=== PATIENT | female | born 1990 | race Caucasian/White ===

== ENCOUNTER → 2021-09-29 10:05 | Outpatient (BNVA) | payer MEDICAID, SELFPAY | PROVIDERS: PCP Obstetrics & Gynecology; Visit Provider Obstetrics & Gynecology | DX: Z34.90 Encounter for supervision of normal pregnancy, unspecified, unspecified trimester (principal) | CPT/HCPCS: 80307; 84315 ==

== ENCOUNTER → 2021-10-06 15:39 | Outpatient (BNVA) | payer MEDICAID, SELFPAY | PROVIDERS: PCP Obstetrics & Gynecology; Visit Provider Obstetrics & Gynecology | DX: O09.899 Supervision of other high risk pregnancies, unspecified trimester (principal) | CPT/HCPCS: 84315; 87081 ==

== ENCOUNTER 2021-10-16 09:09 | Outpatient (CLI) | payer MEDICAID, SELFPAY ==
--- NOTE | 2021-10-16 10:15 | US_ITS ---
WS: [id number] LIMITED OBSTETRICAL ULTRASOUND Amniotic fluid index: HISTORY: Supervision high risk . COMPARISON: None available. Presentation: Vertex. Cervix: Closed and difficult to visualize its entire length. Placenta: Posterior and fundal. No previa or abruption. Grade: 2 HEART: FHR of 138 BPM. measurements: BPD = 9.2 cm = 37w1d HC = 32.9 cm = 37w3d AC = 35.5 cm = 39w3d FL = 7.1 cm = 36w3d MAYUR: 14.8 cm; 50th percentile. EFW: 3441 g; 76 %. AGA by ultrasound: 37w4d SATYA by ultrasound: 11/02/2021 Abdominal circumference measuring slightly greater than the remaining parameters. Less than 3 weeks d iscrepancy. US/[place] [id number] IMPRESSION: 1. Single intrauterine gestation of 37 weeks 4 days with an EDC of 11/02/2021. 2. Estimated weight at the 76th percentile. 3. No prior studies for comparison to evaluate growth trending. 4. Normal amniotic fluid.
== END 2021-10-16 09:10 | disposition home or self-care (01) ==
PROVIDERS: Visit Provider Obstetrics & Gynecology
DX: O09.899 Supervision of other high risk pregnancies, unspecified trimester (principal)
CPT/HCPCS: 76816

== ENCOUNTER → 2021-10-20 08:33 | Outpatient (BNVA) | payer MEDICAID, SELFPAY | PROVIDERS: PCP Obstetrics & Gynecology; Visit Provider Obstetrics & Gynecology | DX: O09.899 Supervision of other high risk pregnancies, unspecified trimester (principal); Z3A.00 Weeks of gestation of pregnancy not specified | CPT/HCPCS: 84315; 87522 ==

== ENCOUNTER 2021-10-24 20:57 | Inpatient (IN) | payer MEDICAID, SELFPAY ==
[2021-10-24] VITALS (70 sets, daily range): BP systolic 108–159; BP diastolic 53–108; PULSE 68–121; RESP 20; TEMP 36.4–37; O2SAT 93–99; BMI 45.4
[2021-10-24 10:40] LABS: Basophils # 0.1 10^3/uL (0.0-0.1); Basophils % 0.3 %; Eosinophils # 0.2 10^3/uL (0.0-0.8); Eosinophils % 1.2 %; Hematocrit 36.7 % (37.0-47.0); Hemoglobin 12.6 g/dL (11.5-15.3); Lymphocytes # 1.7 10^3/uL (0.8-4.8); Lymphocytes % 9.1 %; Mean Corpuscular HGB Conc 34.3 g/dL (30.0-36.0); Mean Corpuscular Hemoglobin 28.8 pg (28.0-34.0); Mean Platelet Volume 10.9 fL (7.4-10.4); Monocytes # 1.1 10^3/uL (0.2-0.9); Monocytes % 5.9 %; Neutrophils # 15.71 10^3/uL (1.8-7.7); Neutrophils % 81.9 %; Nucleated Red Blood Cells % 0 %; Platelet Count 338 10^3/cmm (130-400); Red Blood Count 4.37 10^6/uL (4.1-5.3); Red Cell Distribution Width 12.9 % (12.1-15.1); White Blood Count 19.2 10^3/uL (4.0-10.0)
[2021-10-24 10:50] LABS: Amphetamines Screen Urine Negative (Negative); Barbiturates Screen Urine Negative (Negative); Benzodiazepines Screen Urine Negative (Negative); Cocaine Screen Urine Negative (Negative); Opiate Screen Urine Negative (Negative); PCP Screen Urine Negative (Negative); THC Screen Urine Negative (Negative)
[2021-10-24] MEDS: dextrose 5%-sod chloride 0.9% 1,000 ML 999 ML IV ×2 (12:27→14:18)
[2021-10-24] MEDS: oxytocin 30 UNIT/500 ML BAG IV (16:07)
[2021-10-24] MEDS: lactated ringers 1,000 ML 999 ML IV ×2 (19:10→20:11)
--- NOTE | 2021-10-24 19:59 | P.ANESASSM_ITS ---
Pre-Anesthetic Assessment Height/Weight: Height 1.65 m Weight 123.831 kg Temp Pulse Resp BP 98.1 F 74 20 H 143/77 10/24/21 18:15 10/24/21 19:29 10/24/21 09:43 10/24/21 19:29 Preop Diagnosis: labor epidural Familial anesthetic complications: none Was Beta Venkata taken within 24 hours: N/A Was Clonidine taken within 24 hours: N/A Last Intake: 07:30 Social Tobacco and No alcohol 0.5 pack(s) per day 15+ pack years Exam alert, oriented x 3, clear to auscultation bilaterally and regular rate & rhythm Airway Submandibular: within normal limits Cervical ROM: within normal limits Mallampati: Class I Dentition: full Comments: Comments: tongue and lip ring x2 Pulmonary Asthma (daily inhailer) CV/HEM None reported None reported Hepatic Hepatitis (c) GI None reported Metabolic Morbid Obesity [facility] [place] None reported Neuropsych None reported Anesthetic Plan ASA status: 2 Anesthesia: Regional (specify below) (epidural) Risk of > 500 ml blood loss (7ml/kg in children): No Medications/Allergies Home Medications Medication Instructions Recorded Confirmed Last Taken Type albuterol sulfate 90 mcg/actuation 2 inh INHALATION Q6H PRN 09/29/21 10/20/21 10/24/21 08:00 History breath activated powder inhaler cetirizine 10 mg capsule (Zyrtec) 10 mg PO DAILY PRN 09/29/21 10/20/21 10/24/21 08:00 History docosahexaenoic acid 200 mg mg PO 09/29/21 10/20/21 10/24/21 08:00 History capsule ( DHA) montelukast 10 mg tablet 10 mg PO DAILY 09/29/21 10/20/21 10/24/21 08:00 History fluticasone propionate 50 1 inh INHALATION BID 10/06/21 10/20/21 10/23/21 21:30 History mcg/actuation blister powder for inhalation (Flovent Diskus) Allergies Allergy/AdvReac Type Severity Reaction Status Date / Time No Known Allergies Allergy Verified 10/20/21 08:20 Current Medications Generic Name Dose Route Start Last Admin Trade Name Freq PRN Reason Stop Dose Admin Dextrose/Sodium Chloride 1,000 mls @ 0 mls/hr 10/24/21 12:30 10/24/21 14:18 Dextrose 5%-Sod Chloride 0.9% IV 999 mls/hr .Q0M FRANKIE Administration As Directed Oxytocin 30 unit in 500 mls @ 1 mls/hr 10/24/21 16:00 10/24/21 17:15 Pitocin IV 6 milliunit/min .Q24H FRANKIE 6 mls/hr Titration Protocol 1 MILLIUNIT/MIN Lactated Ringer's 1,000 mls @ 999 mls/hr 10/24/21 18:51 10/24/21 19:10 Lactated Ringers IV 999 mls/hr .Q1H1M PRN Administration See label comments PFSH Anesthesia Medical History No pertinent past medical history neghx: htn, dm, thyroid, dvt/pe PCP: Dr. Antonio Supervision of normal Surgical History History of hip surgery History of surgery on lower extremity Family History Grandfather Diabetes maternal Hypertension Heart disease Denies family history of Cervical cancer Colon cancer Ovarian cancer Prostate cancer Hyperlipidemia Breast cancer Bleeding disorder Uterine cancer Thyroid disease Stroke Female Reproductive History : 1 Data Anesthesia : 10/24/21 10:20 Short CBC 10/24/21 Range/Units 10:20 WBC 19.2 H (4.0-10.0) 10^3/uL Hgb 12.6 (11.5-15.3) g/dL Hct 36.7 L (37.0-47.0) % MCV 84.0 (81-99) fl Plt Count 338 (130-400) 10^3/cmm Neut % (Auto) 81.9 % Neut # (Auto) 15.71 H (1.8-7.7) 10^3/uL Cardiac Studies: No Data to Display
--- NOTE | 2021-10-24 20:52 | ANES.PROC ---
Anesthesia Procedures Procedure/Date: 10/24/21 Epidural: Time Out Performed: Yes Consents Signed: Procedure Consent and NPO Consent Consent: requested by attending/covering physician, from patient, risks and benefits reviewed and patient agrees to proceed Lumbar Level: L3-L4 Epidural position: sitting Epidural procedure: sterile prep of area (betadine), 1% lidocaine to numb the area, 18 g needle, neg for paresthesia, test dose given (2% lidocaine PF with epi 1:200,000 3ml no response then 2ml), 0.2% Ropivacaine bolus ml (5ml), placed PCEA, no systemic response, sterile dressing applied, L.U.D. no apparent complications and 0.2% Ropiavacaine @ mls/hr (13ml/hr)
[2021-10-24] MEDS: lactated ringers 1,000 ML 125 ML IV (21:24)
[2021-10-25] VITALS (26 sets, daily range): BP systolic 92–137; BP diastolic 51–77; PULSE 81–104; RESP 16–17; TEMP 36.4–37.6; O2SAT 93–97
[2021-10-25] MEDS: lactated ringers 1,000 ML 999 ML IV (00:20)
[2021-10-25] MEDS: famotidine 20 mg/2 mL INJ IVP (00:36)
[2021-10-25] MEDS: citric acid-sodium citrate 30 mL UDC PO (00:36)
[2021-10-25] MEDS: metoclopramide 5 mg/mL SDV 2 mL 10 MG IVP (00:36)
--- NOTE | 2021-10-25 00:38 | W.PM.OPSUD ---
Surgery/Procedure H&P Update DATE OF PROCEDURE: October 25, 2021 DATE H&P PERFORMED: 10/20/21 H&P UPDATE INFORMATION: I have reviewed H&P completed within last 30 days, I have examined patient prior to procedure and No changes to prior documentation PREOP DIAGNOSIS: labor Related Problem List Diagnoses (1) Rubella non-immune status, antepartum: (2) Hepatitis C antibody positive in blood: (3) Supervision of other high-risk :
--- NOTE | 2021-10-25 00:39 | P.PN_ITS ---
Subjective Subjective: Upon admission today, the patient was noted to be having variable decelerations. After fluid bolus, the strip was reactive and pitocin was started. She had SROM. She received an epidural for pain management. She progressed to 3/60/-3 and began having late decelerations. The pitocin was at 6 units. It was turned off, resuscitative measures were taken. The tracing was category two, without accelerations. The late decelerations had stopped. I had previously had a conversation with the patient about this situation. She is remote from delivery, having mild contractions every 5-7 minutes and the baby isn't tolerating this well. My recomendation is we deliver by primary . The patient agrees and consent is signed. Vitals/I&O/Wt Last Vital Signs Temp 98.1 F 10/24/21 18:15 Pulse 93 10/25/21 00:37 Resp 20 H 10/24/21 09:43 BP 125/73 10/25/21 00:37 Pulse Ox 99 10/24/21 21:18 10/24/21 10/24/21 10/25/21 14:59 22:59 06:59 Intake Total 1000 / 1000 2002.767 / 3003.767 Balance 1000 / 1000 2002.767 / 3003.767 Weight last 48 hrs Weight 273 lb Physical Exam Urinary Catheter Management: Hinton: Cath Placed During This Visit: yes Urinary Catheter Date of Insertion: 10/24/21 Urinary Catheter Time of Insertion: 21:05 Data : 10/24/21 10:20 Attestations Medical Necessity Statement*: The patient will be here at least 2 midnights prior to discharge. 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
--- NOTE | 2021-10-25 01:41 | P.OP_ITS ---
Operative Report Date of procedure: October 25, 2021 Pre-op diagnosis: Preop Diagnosis intolerance to labor Post-op diagnosis: same Post-op diagnosis: same-delivered Post-op findings: term female in the cephalic presentation Procedure done: primary Specimens removed/disposition: placenta to pathology Surgeon: Paola Mendoza Anesthesia: Epidural Estimated blood loss (mL): 500 IV fluids (mL): 1,500 Urine output (mL): 400 Complications: none Condition: stable Disposition: floor Procedure: The patient was taken to the operating room where spinal anesthesia was administered and found to be adequate. She was prepped and draped in the normal sterile fashion in the dorsal supine position with a leftward tilt. A P fannenstiel skin incision was made and carried down to the underlying layer of fascia. The fascia was nicked in the midline and extended laterally with the Melara scissors. The fascia was then tented up and the rectus muscles dissected off sharply. The rectus muscles were and the peritoneum entered bluntly with the digit. The peritoneal incision was extended superiorly and inferiorly with good visualization of the bladder. The Jaswinder O retractor was placed. It was clear of any bowel or omentum. The bladder flap was created sharply with the Metzenbaum scissors. A low transverse uterine incision was made and carried down to the bag of water. The bag of water was ruptured and the uterine incision extended cephalocaudad. The scalp was grasped and brought through the incision. The nose and mouth were bulb suctioned. The shoulders and body delivered atraumatically. The baby was allowed to rest, while being dried, for 1 minute and then the cord was clamped and cut. The baby was handed to the waiting operator weapon locating radar. The placenta was delivered by expression. The uterus was exteriorized and cleared of all clots and debris. The uterine incision was closed with 0 Vicryl in a running fashion. A second imbricating layer of 3-0 Monocryl was used to close the uterus. The bladder flap was closed with 3-0 Monocryl. There was excellent hemostasis. The Jaswinder O retractor was removed. The uterus was returned to the abdomen. The peritoneum was closed with 3-0 Monocryl, incorporating the rectus muscle. The fascia was closed with 0 Vicryl in 2 separate sutures overlapping in the midline. The skin was closed with absorbable nhung. Apgars on baby 8 at 1 minute and 9 at 5 minutes. weight 7 pounds 9 ounces. Mother and baby were stable post delivery.
[2021-10-25] MEDS: ketorolac 30 mg/mL INJ IVP (03:36)
--- NOTE | 2021-10-25 06:19 | PC.NURSE ---
At 0603 this nurse entered room to find IV had been pulled by patient movement.
--- NOTE | 2021-10-25 07:15 | ANE.PACU2 ---
Inpatient post-anesthesia follow up: Airway intact: Yes Vital signs: Temperature 98.1 F Pulse Rate 92 Respiratory Rate 20 Blood Pressure 126/67 Pulse Oximetry 94 Oxygen Delivery Me thod Room Air Oxygen Flow Rate Fraction of Inspir ed Oxygen Hydration adequate: Yes Nausea and vomiting: Yes Pain level: 2 Mental status: Baseline
[2021-10-25] MEDS: docusate sodium 100 mg Capsule PO ×2 (11:22→20:59)
[2021-10-25] MEDS: montelukast sodium 10 mg Tablet PO (11:23)
[2021-10-25] MEDS: oxyCODONE-APAP 5-325 mg Tablet PO ×2 (11:23→19:40)
[2021-10-25] MEDS: ibuprofen 800 mg tablet PO ×2 (15:09→20:59)
[2021-10-25 16:06] LABS: Hematocrit 33.7 % (37.0-47.0); Hemoglobin 11.3 g/dL (11.5-15.3); Mean Corpuscular HGB Conc 33.5 g/dL (30.0-36.0); Mean Corpuscular Hemoglobin 29.2 pg (28.0-34.0); Mean Corpuscular Volume 87.1 fl (81-99); Mean Platelet Volume 11.4 fL (7.4-10.4); Platelet Count 335 10^3/cmm (130-400); Red Blood Count 3.87 10^6/uL (4.1-5.3); Red Cell Distribution Width 13.2 % (12.1-15.1); White Blood Count 23.7 10^3/uL (4.0-10.0)
[2021-10-26] VITALS (8 sets, daily range): BP systolic 114–140; BP diastolic 69–82; PULSE 79–93; RESP 15–18; TEMP 36.5–37; O2SAT 96–99
[2021-10-26] MEDS: oxyCODONE-APAP 5-325 mg Tablet PO ×4 (03:00→19:45)
[2021-10-26] MEDS: lanolin oint 7 gm 1 APPLIC TOPICAL (04:01)
--- NOTE | 2021-10-26 07:04 | PM.PN ---
Subjective Subjective: The patient is doing well this morning. No concerns. Vitals/I&O/Wt Last Vital Signs Temp 97.7 F 10/26/21 04:06 Pulse 86 10/26/21 04:06 Resp 16 10/26/21 03:00 BP 114/80 10/26/21 04:06 Pulse Ox 97 10/26/21 04:06 10/25/21 10/26/21 10/26/21 22:59 06:59 14:59 Output Total 500 / 1775 Balance -500 / -1775 Weight last 48 hrs Weight 273 lb Physical Exam Narrative: no concerns Const: COMMON NORMALS: no acute distress, patient oriented x3, no limitations, healthy appearing, alert and well nourished GENERAL APPEARANCE: cooperative, comfortable, well kempt and well developed ORIENTATION/CONSCIOUSNESS: Yes awake, Yes oriented to person, Yes oriented to place and Yes oriented to time Resp: COMMON NORMALS: normal respiratory effort EFFORT & INSPECTION: Yes able to speak in complete sentences GI: COMMON NORMALS: Soft to palpation and non-tender PALPATION: Yes Soft to palpation Extremity: COMMON NORMALS: normal to inspection and no calf tenderness Neuro: COMMON NORMALS: patient oriented x3 SENSORIUM/ORIENTATION: Yes alert, Yes oriented to person, Yes oriented to place and Yes oriented to time Psych: APPEARANCE: Yes well kempt Skin: WOUNDS: Yes surgical site (clean/dry/intact) Urinary Catheter Management: Hinton: Cath Placed During This Visit: yes, but has since been removed by the nurse Reason for Continuing Indwelling Catheter: Decision to DC Catheter Urinary Catheter Date of Insertion: 10/24/21 Urinary Catheter Time of Insertion: 21:05 Date Urinary Catheter Removed: 10/25/21 Time Urinary Catheter Discontinued: 11:20 Data : 10/25/21 15:19 Attestations Medical Necessity Statement*: The patient has already been here for 2 midnights Coding Level of Care Code 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
[2021-10-26] MEDS: prenatal vitamin Capsule 1 CAP PO (08:05)
[2021-10-26] MEDS: ibuprofen 800 mg tablet PO ×3 (08:05→21:19)
[2021-10-26] MEDS: docusate sodium 100 mg Capsule PO (08:05)
[2021-10-26] MEDS: montelukast sodium 10 mg Tablet PO (08:05)
[2021-10-26] MEDS: ferrous sulfate EC 325 mg Tablet PO (08:06)
[2021-10-27 00:01] VITALS: RESP 16
[2021-10-27] MEDS: oxyCODONE-APAP 5-325 mg Tablet PO ×3 (00:01→08:28)
[2021-10-27 04:25] VITALS: RESP 16; O2SAT 16
[2021-10-27 04:29] VITALS: BP 141/91; PULSE 71; RESP 16; TEMP 36.6; TEMP 36.7; O2SAT 99
--- NOTE | 2021-10-27 07:39 | P.DS_ITS ---
Discharge Providers Date of Admission: 10/24/21 20:57 Date of Discharge: October 27, 2021 Attending Provider at Admission: Paola Mendoza MD Attending Provider at Discharge: Paola Mendoza MD Primary Care Provider: Lyn Antonio DO Diagnoses at Discharge Discharge Diagnosis (1) Rubella non-immune status, antepartum: Status: Acute (2) Hepatitis C antibody positive in blood: Status: Acute (3) Supervision of other high-risk : Status: Acute Reason for Visit Reason for Visit: induction Hospital Course Hospital Course The patient was admitted to the hospital for labor induction at term. There were concerns over creeping blood pressures and swelling. She had intolerance to labor and had a primary . She did well postoperatively and was ready for discharge on day #2 Physical Exam Narrative: no concerns this morning Const: COMMON NORMALS: no acute distress, patient oriented x3, no limitations, healthy appearing, alert and well nourished GENERAL APPEARANCE: cooperative, comfortable, well kempt and well developed ORIENTATION/CONSCIOUSNESS: Yes awake, Yes oriented to person, Yes oriented to place and Yes oriented to time Resp: COMMON NORMALS: normal respiratory effort EFFORT & INSPECTION: Yes able to speak in complete sentences GI: COMMON NORMALS: Soft to palpation and non-tender PALPATION: Yes Soft to palpation Extremity: COMMON NORMALS: no calf tenderness Neuro: COMMON NORMALS: patient oriented x3 SENSORIUM/ORIENTATION: Yes alert, Yes oriented to person, Yes oriented to place and Yes oriented to time Psych: APPEARANCE: Yes well kempt Skin: WOUNDS: Yes surgical site (clean.dry, intact) Urinary Catheter Management: Hinton: Cath Placed During This Visit: yes, but has since been removed by the nurse Reason for Continuing Indwelling Catheter: Decision to DC Catheter Urinary Catheter Date of Insertion: 10/24/21 Urinary Catheter Time of Insertion: 21:05 Date Urinary Catheter Removed: 10/25/21 Time Urinary Catheter Discontinued: 11:20 Discharge Data Studies Completed and Pending Pending at discharge Category Date Time Status Pathology: Surgical [PTH] Routine Pth 10/25/21 09:23 Received Laboratory Results WBC 23.7 10^3/uL (4.0-10.0) H 10/25/21 15:19 RBC 3.87 10^6/uL (4.1-5.3) L 10/25/21 15:19 Hgb 11.3 g/dL (11.5-15.3) L 10/25/21 15:19 Hct 33.7 % (37.0-47.0) L 10/25/21 15:19 MCV 87.1 fl (81-99) 10/25/21 15:19 MCH 29.2 pg (28.0-34.0) 10/25/21 15:19 MCHC 33.5 g/dL (30.0-36.0) 10/25/21 15:19 RDW 13.2 % (12.1-15.1) 10/25/21 15:19 Plt Count 335 10^3/cmm (130-400) 10/25/21 15:19 MPV 11.4 fL (7.4-10.4) H 10/25/21 15:19 Neut % (Auto) 81.9 % 10/24/21 10:20 Lymph % (Auto) 9.1 % 10/24/21 10:20 Mcculloch % (Auto) 5.9 % 10/24/21 10:20 Eos % (Auto) 1.2 % 10/24/21 10:20 Baso % (Auto) 0.3 % 10/24/21 10:20 Neut # (Auto) 15.71 10^3/uL (1.8-7.7) H 10/24/21 10:20 Lymph # (Auto) 1.7 10^3/uL (0.8-4.8) 10/24/21 10:20 Mcculloch # (Auto) 1.1 10^3/uL (0.2-0.9) H 10/24/21 10:20 Eos # (Auto) 0.2 10^3/uL (0.0-0.8) 10/24/21 10:20 Baso # (Auto) 0.1 10^3/uL (0.0-0.1) 10/24/21 10:20 Nucleated RBC % (auto) 0 % 10/24/21 10:20 Nucleated RBCs # 0.0 /100WBC 10/24/21 10:20 Urine Opiates Screen Negative ng/mL (Negative) 10/24/21 10:15 Ur Barbiturates Screen Negative ng/mL (Negative) 10/24/21 10:15 Ur Phencyclidine Scrn Negative ng/mL (Negative) 10/24/21 10:15 Ur Amphetamines Screen Negative ng/mL (Negative) 10/24/21 10:15 U Benzodiazepines Scrn Negative ng/mL (Negative) 10/24/21 10:15 Urine Cocaine Screen Negative ng/mL (Negative) 10/24/21 10:15 U Marijuana (THC) Screen Negative ng/mL (Negative) 10/24/21 10:15 Vitals Last Vital Signs Temp 98.0 F 10/27/21 04:29 Pulse 71 10/27/21 04:29 Resp 16 10/27/21 04:29 BP 141/91 10/27/21 04:29 Pulse Ox 99 10/27/21 04:29 Discharge Plan Discharge Patient Disposition: Home Condition: Stable Prescriptions: New ibuprofen 800 mg Tablet 800 mg PO TID Qty: 30 0RF oxycodone-acetaminophen 5-325 mg Tablet 1 tab PO Q4H PRN (Reason: Moderate To Severe Pain) Qty: 30 0RF docusate sodium 100 mg Capsule 100 mg PO BID Qty: 60 0RF Continued albuterol sulfate 90 mcg/actuation aerosol powdr breath activated 2 inh inhalation Q6H PRN (Reason: ASTHMA) 0RF Zyrtec 10 mg capsule 10 mg PO DAILY PRN (Reason: Allergic Symptoms) 0RF montelukast 10 mg tablet 10 mg PO DAILY 0RF DHA 200 mg capsule PO 0RF Flovent Diskus 50 mcg/actuation blister with device 1 inh inhalation BID 0RF Discharge Orders: Discharge Order (Routine); Ordered 10/27/21 Ordered By: Paola Mendoza Patient Instructions: Depression (DC), Bleeding (DC), Preeclampsia and Eclampsia After Delivery (GEN), OB C, OB Discharge Report, OB Food/Drug Interaction Guide, OB Care at Home, Opioid Safety, OB Home Care, Abnormal Bleeding Discharge Attestations Time Spent in Discharge Care*: less than 30 min Quality Metrics Clinical Quality Measures [ No reported AMI, CVA or VTE this stay] Coding Level of Care Code Acute Chg FW DC note Diagnoses Rubella non-immune status, antepartum O09.899; Z28.39 Hepatitis C antibody positive in blood R76.8 Supervision of other high-risk O09.899
[2021-10-27 08:28] VITALS: RESP 17
[2021-10-27] MEDS: prenatal vitamin Capsule 1 CAP PO (08:28)
[2021-10-27] MEDS: ibuprofen 800 mg tablet PO (08:28)
[2021-10-27] MEDS: montelukast sodium 10 mg Tablet PO (08:28)
[2021-10-27] MEDS: docusate sodium 100 mg Capsule PO (08:28)
--- NOTE | 2021-10-27 10:00 | PC.NURSE ---
d/c instructions discussed with pt. assisted parents adjust car seat straps.
[2021-10-27 10:15] VITALS: BP 134/94; PULSE 84; RESP 18; TEMP 36.4; O2SAT 97
[2021-10-27 10:30] VITALS: BP 134/94; PULSE 84; RESP 18; TEMP 36.4; O2SAT 97
--- NOTE | 2021-10-27 10:37 | PC.NURSE ---
pt declined MMR
== END 2021-10-27 10:30 | disposition home or self-care (01) | DRG 787 ==
LOC: OBGYN 10-25 02:10 → OPOB 10-25 12:30 → OBGYN 10-25 12:30
PROVIDERS: Admitting Provider Obstetrics & Gynecology; PCP Obstetrics & Gynecology; Visit Provider Obstetrics & Gynecology
PROC: 10D00Z1 Extraction of Products of Conception, Low, Open Approach (ICD-10-PCS; CPT 59514; principal; 2021-10-25 00:40)
DX: O76 Abnormality in fetal heart rate and rhythm complicating labor and delivery (principal); O98.42 Viral hepatitis complicating childbirth; B19.20 Unspecified viral hepatitis C without hepatic coma; O99.334 Smoking (tobacco) complicating childbirth; F17.210 Nicotine dependence, cigarettes, uncomplicated; Z3A.39 39 weeks gestation of pregnancy; Z37.0 Single live birth; Z86.14 Personal history of Methicillin resistant Staphylococcus aureus infection
CPT/HCPCS: 36415; 51702; 59025; 80306; 85025; 85027; 88307; 99211; J1885; J2274; J2405; J2765; J2795; J3490; J3535

== ENCOUNTER 2022-03-04 15:43 | Emergency (ER) | payer MEDICAID, SELFPAY ==
[2022-03-04] VITALS (9 sets, daily range): BP systolic 135–143; BP diastolic 85–100; PULSE 70–101; RESP 16–19; TEMP 36.3; O2SAT 91–98
--- NOTE | 2022-03-04 15:50 | ECG_ITS ---
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 Measurements Intervals [place] Rate: 104 P: 65 UT: 140 QRS: 7 QRSD: 102 T: 48 QT: 349 QTc: 460 Interpretive Statements SINUS TACHYCARDIA INCOMPLETE RIGHT BUNDLE BRANCH BLOCK [90+ ms QRS DURATION, TERMINAL R IN V1/V2, 40+ ms S IN I/aVL/V4/V5/V6] ABNORMAL RHYTHM ECG No previous ECG available for comparison Electronically Signed On 03-05-2022 14:20:05 HOME CARE MANAGER RN by Trevor Greene M.D. [email or web address]
--- NOTE | 2022-03-04 16:55 | XRR_ITS ---
PROCEDURE INFORMATION: Exam: XR Chest Exam date and time: 03/04/2022 6:10 PM Age: 31 years old Clinical indication: Cough and dyspnea; Additional info: Dyspnea/cough TECHNIQUE: Imaging protocol: Radiologic exam of the chest. Views: 1 view. COMPARISON: No relevant prior studies available. FINDINGS: Lungs: Unremarkable. No consolidation. Pleural spaces: Unremarkable. No pleural effusion. No pneumothorax. Heart/Mediastinum: Unremarkable. No cardiomegaly. Bones/joints: Unremarkable. XR/XR chest 1V portable [id number] IMPRESSION: No acute findings.
--- NOTE | 2022-03-04 16:59 | ED_ITS ---
Documented by User: Son Herrera DO 03/11/22 12:53 HPI - Chest Pain General: Chief Complaint: Chest Pain Stated Complaint: back pain, chest pain Time Seen by Provider: 03/04/22 16:41 Source: patient Mode of arrival: ambulatory History of Present Illness: 31-year-old female presents emergency room complaining of chest and back pain. She woke up this morning with pain in the middle of her back between her shoulder blades at about the T6 567 level she also has some chest discomfort in the epigastric area radiating upwards. No nausea or vomiting. Denies any fever sweats chills no cough or shortness of breath. Nearly completely resolved at this point. MD complaint: chest pain Onset (ago): hour(s) Timing of current episode: episodic Onset: during rest Pain radiation: back Severity: mild Quality: sharp Relieving factors: nothing Exacerbating factors: nothing Associated symptoms: Deny abdominal pain, diaphoresis, dyspnea, fever(s), leg edema, nausea, palpitations, sense of impending doom, syncope or vomiting Treatment prior to arrival: none Review of Systems Const: Denies: fever(s), chills, fatigue, malaise or diaphoresis ENMT: Denies: throat pain, ear or mastoid pain, nasal discharge or nasal congestion Card: Denies: palpitations or syncope Resp: Denies: dyspnea GI: Denies: abdominal pain, nausea or vomiting : Denies: flank pain, difficulty voiding, dysuria, urinary frequency or urinary urgency Skin/Breast: Denies: rash or pruritus PFSH ED PFSH: Medical History No pertinent past medical history neghx: htn, dm, thyroid, dvt/pe PCP: Dr. Antonio Supervision of normal Surgical History History of hip surgery History of surgery on lower extremity Family History Grandfather Diabetes maternal Hypertension Heart disease Denies family history of Cervical cancer Colon cancer Ovarian cancer Prostate cancer Hyperlipidemia Breast cancer Bleeding disorder Uterine cancer Thyroid disease Stroke Physical Exam Const: GENERAL APPEARANCE: cooperative and comfortable ORIENTATION/CONSCIOUSNESS: Yes awake, Yes oriented to person, Yes oriented to place and Yes oriented to time HENMT: COMMON NORMALS: normocephalic, atraumatic, hearing grossly normal bilaterally, external ears normal, EAC's normal, TM's normal bilaterally, Normal nasal mucous membranes and turbinates present, moist oral mucous membranes and oropharynx normal HEAD & SCALP: normocephalic and atraumatic NOSE: Normal nasal mucous membranes and turbinates present EXTERNAL EAR: Yes external ears normal EXTERNAL AUDITORY CANAL: EAC's normal TYMPANIC MEMBRANE: TM's normal bilaterally Eye: COMMON NORMALS: Equal, round and reactive pupils present, EOMs intact bilaterally, conjunctivae normal and no scleral icterus CONJUNCTIVA: Yes conjunctivae normal PUPIL: Yes Equal, round and reactive pupils present Neck/C-Spine: COMMON NORMALS: full ROM, no lymphadenopathy, supple and no JVD Lymph: LYMPHATIC: no lymphadenopathy noted and no lymphedema noted Resp: COMMON NORMALS: normal respiratory effort, No retractions, No use of accessory muscles and clear to auscultation bilaterally AUSCULTATION: clear to auscultation bilaterally Cardio: COMMON NORMALS: no JVD, regular rate, regular rhythm and No murmurs present (Cardio) RATE: regular rate RHYTHM: regular rhythm GI: COMMON NORMALS: Soft to palpation and No hepatosplenomegaly present AUSCULTATION: Yes normoactive bowel sounds PALPATION: Yes Soft to palpation, No Tenderness to palpation present (GI), No Guarding due to palpation present (GI) and Yes No hepatosplenomegaly present Extremity: COMMON NORMALS: normal to inspection, capillary refill normal, no clubbing, cyanosis or edema, no calf tenderness and no pedal edema Neuro: SENSORIUM/ORIENTATION: Yes oriented to person, Yes oriented to place and Yes oriented to time Skin: COMMON NORMALS: no rashes or lesions noted GENERAL SKIN EXAM: no rashes or lesions noted Course Vital Signs: Vital signs: Vital Signs Temperature 97.3 F L 03/04/22 15:52 Pulse Rate 82 03/04/22 21:54 Respiratory Rate 16 03/04/22 21:54 Blood Pressure 143/90 03/04/22 21:33 Pulse Oximetry 94 03/04/22 21:54 Oxygen Delivery Me thod 03/04/22 21:33 MDM - Chest Pain Medical Decision Making EKG does not show any acute ST elevation. Initial labs reviewed awaiting second troponin. Care signed out to Dr. Spangler at change of shift. See final notes for diagnosis and disposition. Patient presents here with chest pain along with shortness of breath likely asthma exacerbation her pain here is improved troponins are normal her breathing is improved as well place her on steroid she is to follow-up with PCP and return if worsening. Lab Data 03/04/22 19:05 03/04/22 19:05 Radiology Impressions Chest X-Ray 03/04/22 16:55 IMPRESSION: No acute findings. Laboratory Results WBC 15.1 10^3/uL (4.0-10.0) H 03/04/22 19:05 RBC 4.87 10^6/uL (4.1-5.3) 03/04/22 19:05 Hgb 14.1 g/dL (11.5-15.3) 03/04/22 19:05 Hct 43.1 % (37.0-47.0) 03/04/22 19:05 MCV 88.5 fl (81-99) 03/04/22 19:05 MCH 29.0 pg (28.0-34.0) 03/04/22 19:05 MCHC 32.7 g/dL (30.0-36.0) 03/04/22 19:05 RDW 13.2 % (12.1-15.1) 03/04/22 19:05 Plt Count 324 10^3/cmm (130-400) 03/04/22 19:05 MPV 10.8 fL (7.4-10.4) H 03/04/22 19:05 Neut % (Auto) 92.1 % 03/04/22 19:05 Lymph % (Auto) 3.8 % 03/04/22 19:05 [place] % (Auto) 2.6 % 03/04/22 19:05 Eos % (Auto) 0.7 % 03/04/22 19:05 Baso % (Auto) 0.3 % 03/04/22 19:05 Neut # (Auto) 13.92 10^3/uL (1.8-7.7) H 03/04/22 19:05 Lymph # (Auto) 0.6 10^3/uL (0.8-4.8) L 03/04/22 19:05 [place] # (Auto) 0.4 10^3/uL (0.2-0.9) 03/04/22 19:05 Eos # (Auto) 0.1 10^3/uL (0.0-0.8) 03/04/22 19:05 Baso # (Auto) 0.0 10^3/uL (0.0-0.1) 03/04/22 19:05 Nucleated RBC % (auto) 0 % 03/04/22 19:05 Nucleated RBCs # 0.0 /100WBC 03/04/22 19:05 Sodium 128 mmol/L (136-145) L 03/04/22 19:05 Potassium 4.3 mmol/L (3.5-5.1) 03/04/22 19:05 Chloride 97 mmol/L (98-107) L 03/04/22 19:05 Carbon Dioxide 22 mmol/L (22-29) 03/04/22 19:05 Anion Gap 13.3 (5-19) 03/04/22 19:05 BUN 8 mg/dL (6-20) 03/04/22 19:05 Creatinine 0.7 mg/dL (0.5-0.9) 03/04/22 19:05 GFR Calculation 98.3 mL/min (90-130) 03/04/22 19:05 Glucose 119 mg/dL (65-115) H 03/04/22 19:05 Calculated Osmolality 265 mOsm/kg (285-295) L 03/04/22 19:05 Calcium 9.6 mg/dL (8.5-10.5) 03/04/22 19:05 Total Bilirubin 0.6 mg/dL (0.15-1.2) 03/04/22 19:05 AST 302 U/L (0-32) H 03/04/22 19:05 ALT 269 U/L (0-33) H 03/04/22 19:05 Alkaline Phosphatase 106 U/L (35-105) H 03/04/22 19:05 Troponin T Baseline 6 ng/L (0-10) 03/04/22 19:05 Troponin T 120 Minute 6.00 ng/L (0-10) 03/04/22 21:10 Delta Troponin T 0 ABS# (0-10) 03/04/22 21:10 Total Protein 7.4 g/dL (6.6-8.7) 03/04/22 19:05 Albumin 4.0 g/dL (3.5-5.2) 03/04/22 19:05 Globulin 3.4 g/dL (1.3-4.6) 03/04/22 19:05 Discharge Plan Discharge Patient Disposition: Home Clinical Impression: Chest pain, Asthma exacerbation Condition: Stable Prescriptions: New prednisone 50 mg tablet 50 mg PO DAILY Qty: 5 0RF No Action albuterol sulfate 90 mcg/actuation aerosol powdr breath activated 2 inh inhalation Q6H PRN (Reason: ASTHMA) Zyrtec 10 mg capsule 10 mg PO DAILY PRN (Reason: Allergic Symptoms) montelukast 10 mg tablet 10 mg PO BEDTIME methocarbamol 750 mg Tablet 750 mg PO Q8H PRN (Reason: Muscle Pain) hydrocortisone 2.5 % cream 1 applic TOPICAL . DIRECTED PRN (Reason: eczema) Symbicort 160-4.5 mcg/actuation HFA aerosol inhaler 2 puff INHALATION BID Discharge Orders: Discharge ED (Routine); Ordered 03/04/22 Ordered By: Jorge Spangler Referrals: Lyn Antonio DO [Primary Care Provider] - Discharge Diet: Advance as tolerated Discharge Activity: Resume usual activity Patient Instructions: Asthma (ED) Coding Level of Care Code ED Drawer In Stitch Bonding Machine for Chg Fwd Exam Comprehensive Documented by User: Jorge Spangler MD 03/04/22 22:10 HPI - Chest Pain General: Chief Complaint: Chest Pain Stated Complaint: back pain, chest pain Time Seen by Provider: 03/04/22 16:41 PFSH ED PFSH: Medical History No pertinent past medical history neghx: htn, dm, thyroid, dvt/pe PCP: Dr. Antonio Supervision of normal Surgical History History of hip surgery History of surgery on lower extremity Family History Grandfather Diabetes maternal Hypertension Heart disease Denies family history of Cervical cancer Colon cancer Ovarian cancer Prostate cancer Hyperlipidemia Breast cancer Bleeding disorder Uterine cancer Thyroid disease Stroke Course Vital Signs: Vital signs: Vital Signs Temperature 97.3 F L 03/04/22 15:52 Pulse Rate 82 03/04/22 21:54 Respiratory Rate 16 03/04/22 21:54 Blood Pressure 143/90 03/04/22 21:33 Pulse Oximetry 94 03/04/22 21:54 Oxygen Delivery Me thod 03/04/22 21:33 MDM - Chest Pain Medical Decision Making Patient presents here with chest pain along with shortness of breath likely asthma exacerbation her pain here is improved troponins are normal her breathing is improved as well place her on steroid she is to follow-up with PCP and return if worsening. Lab Data 03/04/22 19:05 03/04/22 19:05 Radiology Impressions Chest X-Ray 03/04/22 16:55
[2022-03-04] MEDS: orphenadrine 30 mg/mL Inj 2 mL 60 MG IVP (17:11)
[2022-03-04] MEDS: dexamethasone 10 mg/mL INJ IVP (17:11)
[2022-03-04] MEDS: ketorolac 30 mg/mL INJ IVP (17:11)
[2022-03-04] MEDS: morphine 4 mg/mL SDV 1 mL IVP (17:12)
--- NOTE | 2022-03-04 18:35 | ECG_ITS ---
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 Measurements Intervals [place] Rate: 79 P: 63 MT: 167 QRS: 3 QRSD: 100 T: 40 QT: 368 QTc: 423 Interpretive Statements SINUS RHYTHM WITH SINUS ARRHYTHMIA LOW QRS VOLTAGE IN PRECORDIAL LEADS [QRS DEFLECTION < 1.0 mV IN CHEST LEADS] INCOMPLETE RIGHT BUNDLE BRANCH BLOCK [90+ ms QRS DURATION, TERMINAL R IN V1/V2, 40+ ms S IN I/aVL/V4/V5/V6] No previous ECG available for comparison Electronically Signed On 03-05-2022 14:20:14 RISK MANAGEMENT PROFESSIONAL by Trevor Greene M.D. [id number]
[2022-03-04] MEDS: lidocaine 2% viscous 15 ML, aluminum-mag hydrox-simethicon 30 ML, sucralfate oral liq 1 GM PO (18:49)
[2022-03-04 19:12] LABS: Basophils % 0.3 %; Eosinophils # 0.1 10^3/uL (0.0-0.8); Eosinophils % 0.7 %; Hematocrit 43.1 % (37.0-47.0); Hemoglobin 14.1 g/dL (11.5-15.3); Lymphocytes # 0.6 10^3/uL (0.8-4.8); Lymphocytes % 3.8 %; Mean Corpuscular HGB Conc 32.7 g/dL (30.0-36.0); Mean Corpuscular Volume 88.5 fl (81-99); Mean Platelet Volume 10.8 fL (7.4-10.4); Monocytes # 0.4 10^3/uL (0.2-0.9); Monocytes % 2.6 %; Neutrophils # 13.92 10^3/uL (1.8-7.7); Neutrophils % 92.1 %; Nucleated Red Blood Cells % 0 %; Platelet Count 324 10^3/cmm (130-400); Red Blood Count 4.87 10^6/uL (4.1-5.3); Red Cell Distribution Width 13.2 % (12.1-15.1); White Blood Count 15.1 10^3/uL (4.0-10.0)
[2022-03-04] MEDS: ipratropium-albuterol 3 mL Neb INHALATION (19:29)
[2022-03-04 19:34] LABS: Troponin(5th) Baseline 6 ng/L (0-10)
[2022-03-04 19:37] LABS: Alanine Aminotransferase 269 U/L (0-33); Alkaline Phosphatase 106 U/L (35-105); Anion Gap 13.3 (5-19); Aspartate Amino Transferase 302 U/L (0-32); Blood Urea Nitrogen 8 mg/dL (6-20); Calcium 9.6 mg/dL (8.5-10.5); Carbon Dioxide 22 mmol/L (22-29); Chloride 97 mmol/L (98-107); Globulin 3.4 g/dL (1.3-4.6); Glomerular Filtration Rate 98.3 mL/min (90-130); Glucose 119 mg/dL (65-115); Osmolality Calculated 265 mOsm/kg (285-295); Potassium 4.3 mmol/L (3.5-5.1); Sodium 128 mmol/L (136-145); Total Bilirubin 0.6 mg/dL (0.15-1.2); Total Protein 7.4 g/dL (6.6-8.7)
[2022-03-04] MEDS: sodium chloride 0.9% 1,000 ML 999 ML IV (20:04)
--- NOTE | 2022-03-04 20:07 | ECG_ITS ---
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 Measurements Intervals [place] Rate: 89 P: 60 PA: 163 QRS: 12 QRSD: 100 T: 40 QT: 364 QTc: 444 Interpretive Statements SINUS RHYTHM LOW QRS VOLTAGE IN PRECORDIAL LEADS [QRS DEFLECTION < 1.0 mV IN CHEST LEADS] INCOMPLETE RIGHT BUNDLE BRANCH BLOCK [90+ ms QRS DURATION, TERMINAL R IN V1/V2, 40+ ms S IN I/aVL/V4/V5/V6] Compared to ECG 03/04/2022 18:35:34 Sinus arrhythmia no longer present Electronically Signed On 03-06-2022 0:09:28 EROSION CONTROL SPECIALIST by Trevor Greene M.D. [id number]
[2022-03-04 21:36] LABS: Troponin 5 2HR Delta 0 ABS# (0-10)
== END 2022-03-04 21:50 | disposition home or self-care (01) ==
PROVIDERS: Family Medicine; Emergency Provider Emergency Medicine; PCP Obstetrics & Gynecology
DX: R07.9 Chest pain, unspecified (principal); J45.901 Unspecified asthma with (acute) exacerbation
CPT/HCPCS: 71045; 80053; 84484; 85025; 93005; 94640; 96361; 96374; 96375; 99285; J1100; J1885; J2270; J2360; J7030

== ENCOUNTER 2022-03-09 11:19 | Emergency (ER) | payer MEDICAID, SELFPAY ==
[2022-03-09 11:37] VITALS: BP 141/95; PULSE 129; RESP 13; TEMP 36.8; O2SAT 98; BMI 58.3
--- NOTE | 2022-03-09 12:34 | US_ITS ---
WS: [id number] ULTRASOUND ABDOMEN LIMITED CLINICAL INFORMATION: RUQ pain with right flank radiation COMPARISON: None. FINDINGS: Liver Size: Hepatomegaly. Craniocaudal length: 18.7 cm. Echogenicity: Normal. Surface nodularity: None. Mass (size and location): Echogenic lesion measuring 10 x 9 cm millimeters the RIGHT hepatic lobe lik scarlett hemangioma. Bile ducts Intrahepatic ducts: Normal. Common bile duct diameter: 13 mm. Gallbladder Mobile calculi Gallstones: Present Gallbladder sludge: None. Gallbladder wall thickening: None. Pericholecystic fluid: None. Sonographic Juarez sign: Absent. Pancreas Normal as visualized. Right kidney: Normal. Hydronephrosis: None. Size: 10.8 cm x 6.3 cm x 5.1 cm. Abdominal aorta and IVC Visualized portions are normal. Ascites: None. US/US gall bladder [id number] IMPRESSION: 1. Hepatomegaly. 2. Cholelithiasis with mobile calculi. No gallbladder wall thickening or peric holecystic fluid. 3. Common bile duct is significantly enlarged measuring 14 mm. Recommend furth er evaluation with MRCP to evaluate for choledocholithiasis. 4. Echogenic lesion RIGHT hepatic lobe measuring 10 mm likely cavernous charles ioma. This can be further evaluated with MRI liver with contrast or triphasic l iver CT for better evaluation 5. No hydronephrosis in RIGHT kidney.
--- NOTE | 2022-03-09 12:36 | W.ED.BACK ---
HPI - Back Pain/Injury General: Chief Complaint: Back Pain/Injury Stated Complaint: Maylin sent for possible gallbladder issue Time Seen by Provider: 03/09/22 12:26 Source: patient Mode of arrival: ambulatory Limitations: no limitations History of Present Illness: This patient was referred to the emergency department from her primary care office. She states that since Saturday she has had right flank and right upper quadrant pain. She states that began on Saturday she had eaten a fatty meal and then laid down for a nap and upon awakening from her nap she had the discomfort which has continued since that time. She states that it seems to radiate around to her back at times and other times it seems to start her back and radiate around to her right upper abdomen. She states that eating or drinking tends to exacerbate her symptoms. She denies any fevers or chills nausea or vomiting or diarrhea. She states that she has had less intake than normal and her urine has appeared to be more concentrated to her. She states that she has never had these symptoms prior to Saturday. She delivered a approximately 4 months ago but did not have any the symptoms during her . There is a positive family history of gallbladder disease her mother has had a cholecystectomy. She has had no abdominal surgeries. She does smoke and has a history of asthma. No injuries to her back to include lifting twisting turning bending falls etc. She denies any dysuria, history of kidney stones etc. Timing: intermittent Quality: sharp, dull and spasming Radiation: abdomen Exacerbating factors: eating and deep breaths Associated symptoms: Reports abdominal pain and nausea; Deny chills, change in bowel habits, dysuria, fever(s) or vomiting Review of Systems Const: Denies: fever(s) or chills Eyes: Denies: change in vision ENMT: Denies: throat pain, odynophagia, nasal discharge or nasal congestion Card: Denies: chest pain, palpitations or irregular heart rhythm Resp: Denies: dyspnea, productive cough or non-productive cough GI: Reports: abdominal pain and nausea; Denies: vomiting, diarrhea, change in bowel habits or white/light colored stool : Denies: difficulty voiding, dysuria, urinary frequency, vaginal bleeding or vaginal discharge Musc: Denies: neck pain, extremity pain or extremity swelling Skin/Breast: Denies: rash, pruritus or erythema Neuro: Denies: headache(s), numbness in extremities or weakness in extremities Endo: Denies: polyuria, polydipsia or tired all the time Alex/Lymph: Denies: easy bruising PFSH ED PFSH: Medical History No pertinent past medical history neghx: htn, dm, thyroid, dvt/pe PCP: Dr. Antonio Supervision of normal Surgical History History of hip surgery History of surgery on lower extremity Family History Grandfather Diabetes maternal Hypertension Heart disease Denies family history of Cervical cancer Colon cancer Ovarian cancer Prostate cancer Hyperlipidemia Breast cancer Bleeding disorder Uterine cancer Thyroid disease Stroke Physical Exam Narrative: EXAM NARRATIVE: She appears to be alert and in no acute distress. She answers questions appropriately in a goal-directed fashion. Const: COMMON NORMALS: no acute distress, patient oriented x3 and healthy appearing GENERAL APPEARANCE: cooperative and well kempt NUTRITIONAL APPEARANCE: overweight HENMT: COMMON NORMALS: normocephalic, Normal nasal mucous membranes and turbinates present and moist oral mucous membranes HEAD & SCALP: normocephalic NOSE: Normal nasal mucous membranes and turbinates present Eye: COMMON NORMALS: Equal, round and reactive pupils present, EOMs intact bilaterally, conjunctivae normal and no scleral icterus CONJUNCTIVA: Yes conjunctivae normal PUPIL: Yes Equal, round and reactive pupils present Neck/C-Spine: COMMON NORMALS: full ROM and no lymphadenopathy Chest: COMMONS NORMALS: normal inspection of the chest and normal palpation of entire chest wall Resp: COMMON NORMALS: normal respiratory effort, No retractions, No use of accessory muscles and clear to auscultation bilaterally AUSCULTATION: clear to auscultation bilaterally Cardio: COMMON NORMALS: regular rate, regular rhythm, No murmurs present (Cardio) and Peripheral pulses 2+ throughout RATE: regular rate RHYTHM: regular rhythm PERIPHERAL PULSES: Peripheral pulses 2+ throughout GI: OTHER: Abdominal examination reveals to be generally soft throughout. She does have subjective tenderness and mild voluntary guarding in the right upper quadrant which extends subcostally around to the right to the area of the posterior axillary line. There is no skin changes to include no evidence of rash, ecchymosis etc. Having her take a deep breath during examination also reproduces symptoms. No evidence of peritoneal signs with rebound and voluntary guarding etc. : COMMON NORMALS: Yes no CVA tenderness BLADDER/KIDNEY EXAM: Yes no CVA tenderness Back/Pelvis: COMMON NORMALS: no CVA tenderness, thoracic and lumbar spine normal to inspection, thoraco-lumbar ROM normal and straight leg raise negative bilaterally Extremity: COMMON NORMALS: normal to inspection, full ROM, no calf tenderness and no pedal edema Neuro: COMMON NORMALS: patient oriented x3, moves all extremities, no focal motor deficits and no sensory deficits noted CRANIAL NERVES: Yes CN normal except as noted Psych: COMMON NORMALS: mental status grossly normal APPEARANCE: Yes well kempt Skin: COMMON NORMALS: no rashes or lesions noted, turgor normal and no jaundice GENERAL SKIN EXAM: no rashes or lesions noted and turgor normal Course Reevaluation(s): Reevaluation #1: Patient remains comfortable. Discussed current findings with the patient and family members. Explained that she needs additional testing specifically an ERCP to evaluate for common bile duct stone etc. Time: 14:00 Consultations: Consultation #1: Discussed with attending physician who states that she needs ERCP to expedite her optimal care. We do not provide that service at this facility. Time: 14:01 Consultation #2: Discussed with admitting hospitalist at [facility] who agreed except patient. Time: 14:49 Vital Signs: Vital signs: Vital Signs Temperature 98.2 F 03/09/22 11:37 Pulse Rate 102 H 03/09/22 12:38 Respiratory Rate 14 03/09/22 12:49 Blood Pressure 125/91 03/09/22 12:38 Pulse Oximetry 91 03/09/22 12:49 Oxygen Delivery Me thod 03/09/22 12:38 MDM - Back Pain/Injury Medical Decision Making Patient presented to our emergency department with a 1 week history of right upper quadrant pain and flank pain suggestive of colicky pain. No prior history of similar occurrence. The onset of symptoms seem to be, after a fatty meal. They have persisted daily until arrival here. She has had positive family history of gallbladder disease as well. Relation in the emergency department reveals her to be clinically stable but positive right upper quadrant tenderness to palpation. Gallbladder ultrasound was obtained and revealed multiple gallstones with a markedly dilated common bile duct no other acute findings. Laboratories were notable for total bili elevation as well as ALK Jeanette and transaminase elevation. Because of our inability to do ERCP at this facility she is being transferred to [facility] under Dr. Moe's services. Patient is being transported in stable condition via EMS. BERHANEALA paperwork completed. Labs 03/09/22 12:56 03/09/22 13:12 Radiology Impressions Gallbladder Ultrasound 03/09/22 12:34 IMPRESSION: 1. Hepatomegaly. 2. Cholelithiasis with mobile calculi. No gallbladder wall thickening or pericholecystic fluid. 3. Common bile duct is significantly enlarged measuring 14 mm. Recommend further evaluation with MRCP to evaluate for choledocholithiasis. 4. Echogenic lesion RIGHT hepatic lobe measuring 10 mm likely cavernous hemangioma. This can be further evaluated with MRI liver with contrast or triphasic liver CT for better evaluation 5. No hydronephrosis in RIGHT kidney. Laboratory Results WBC 15.6 10^3/uL (4.0-10.0) H 03/09/22 12:56 Corrected WBC Cancelled 03/09/22 12:34 RBC 4.92 10^6/uL (4.1-5.3) 03/09/22 12:56 Hgb 14.3 g/dL (11.5-15.3) 03/09/22 12:56 Hct 43.1 % (37.0-47.0) 03/09/22 12:56 MCV 87.6 fl (81-99) 03/09/22 12:56 MCH 29.1 pg (28.0-34.0) 03/09/22 12:56 MCHC 33.2 g/dL (30.0-36.0) 03/09/22 12:56 RDW 13.5 % (12.1-15.1) 03/09/22 12:56 Plt Count 314 10^3/cmm (130-400) 03/09/22 12:56 MPV 11.3 fL (7.4-10.4) H 03/09/22 12:56 Gran % Cancelled 03/09/22 12:34 Neut % (Auto) 89.2 % 03/09/22 12:56 Lymph % (Auto) 4.9 % 03/09/22 12:56 [place] % (Auto) 4.4 % 03/09/22 12:56 Eos % (Auto) 0.6 % 03/09/22 12:56 Baso % (Auto) 0.3 % 03/09/22 12:56 Neut # (Auto) 13.94 10^3/uL (1.8-7.7) H 03/09/22 12:56 Lymph # (Auto) 0.8 10^3/uL (0.8-4.8) 03/09/22 12:56 [place] # (Auto) 0.7 10^3/uL (0.2-0.9) 03/09/22 12:56 Eos # (Auto) 0.1 10^3/uL (0.0-0.8) 03/09/22 12:56 Baso # (Auto) 0.0 10^3/uL (0.0-0.1) 03/09/22 12:56 Absolute Gran (auto) Cancelled 03/09/22 12:34 Nucleated RBC % (auto) 0 % 03/09/22 12:56 Nucleated RBCs # 0.0 /100WBC 03/09/22 12:56 Sodium 136 mmol/L (136-145) 03/09/22 13:12 Potassium 4.4 mmol/L (3.5-5.1) 03/09/22 13:12 Chloride 104 mmol/L (98-107) 03/09/22 13:12 Carbon Dioxide 23 mmol/L (22-29) 03/09/22 13:12 Anion Gap 13.4 (5-19) 03/09/22 13:12 BUN 10 mg/dL (6-20) 03/09/22 13:12 Creatinine 0.7 mg/dL (0.5-0.9) 03/09/22 13:12 GFR Calculation 98.3 mL/min (90-130) 03/09/22 13:12 Glucose 115 mg/dL (65-115) 03/09/22 13:12 Calculated Osmolality 282 mOsm/kg (285-295) L 03/09/22 13:12 Calcium 9.3 mg/dL (8.5-10.5) 03/09/22 13:12 Total Bilirubin 3.6 mg/dL (0.15-1.2) H 03/09/22 13:12 AST 307 U/L (0-32) H 03/09/22 13:12 ALT 967 U/L (0-33) H 03/09/22 13:12 Alkaline Phosphatase 180 U/L (35-105) H 03/09/22 13:12 Total Protein 7.1 g/dL (6.6-8.7) 03/09/22 13:12 Albumin 3.8 g/dL (3.5-5.2) 03/09/22 13:12 Globulin 3.3 g/dL (1.3-4.6) 03/09/22 13:12 Lipase 23 U/L (13-60) 03/09/22 13:12 HCG, Qual Negative (Negative) 03/09/22 12:34 Urine Color Dark yellow (Yellow) 03/09/22 13:50 Urine Appearance Clear (CLEAR) 03/09/22 13:50 Urine pH 6 (5-7) 03/09/22 13:50 Ur Specific [place] 1.010 (1.005-1.030) 03/09/22 13:50 Urine Protein Neg (Negative) 03/09/22 13:50 Urine Glucose (UA) Norm (Normal) 03/09/22 13:50 Urine Ketones Negative (Negative) 03/09/22 13:50 Urine Blood Neg (Negative) 03/09/22 13:50 Urine Nitrate Negative (Negative) 03/09/22 13:50 Urine Bilirubin 1+ (Negative) H 03/09/22 13:50 Urine Urobilinogen Norm mg/dL (Negative) 03/09/22 13:50 Ur Leukocyte Esterase Negative (Negative) 03/09/22 13:50 Discharge Plan Discharge Patient Disposition: Xfer Short-Term Hosp Clinical Impression: Choledocholithiasis Condition: Stable Prescriptions: No Action albuterol sulfate 90 mcg/actuation aerosol powdr breath activated 2 inh inhalation Q6H PRN (Reason: ASTHMA) Zyrtec 10 mg capsule 10 mg PO DAILY PRN (Reason: Allergic Symptoms) montelukast 10 mg tablet 10 mg PO BEDTIME prednisone 50 mg tablet 50 mg PO DAILY Qty: 5 0RF methocarbamol 750 mg Tablet 750 mg PO Q8H PRN (Reason: Muscle Pain) hydrocortisone 2.5 % cream 1 applic TOPICAL . DIRECTED PRN (Reason: eczema) Symbicort 160-4.5 mcg/actuation HFA aerosol inhaler 2 puff INHALATION BID Referrals: Lyn Antonio DO [Primary Care Provider] - Coding Level of Care Code ED Tool Maintenance Technician for Chg Fwd Exam Comprehensive
[2022-03-09 12:38] VITALS: BP 125/91; PULSE 102; RESP 14; O2SAT 93
[2022-03-09] MEDS: ondansetron 2 mg/ML SDV 2 mL 4 MG IVP (12:47)
[2022-03-09 12:49] VITALS: RESP 14; O2SAT 91
[2022-03-09] MEDS: morphine 4 mg/mL SDV 1 mL IVP ×2 (12:49→16:42)
[2022-03-09 12:53] LABS: HCG, Serum Qual Negative (Negative)
[2022-03-09 13:05] LABS: Basophils % 0.3 %; Eosinophils # 0.1 10^3/uL (0.0-0.8); Eosinophils % 0.6 %; Hematocrit 43.1 % (37.0-47.0); Hemoglobin 14.3 g/dL (11.5-15.3); Lymphocytes # 0.8 10^3/uL (0.8-4.8); Lymphocytes % 4.9 %; Mean Corpuscular HGB Conc 33.2 g/dL (30.0-36.0); Mean Corpuscular Hemoglobin 29.1 pg (28.0-34.0); Mean Corpuscular Volume 87.6 fl (81-99); Mean Platelet Volume 11.3 fL (7.4-10.4); Monocytes # 0.7 10^3/uL (0.2-0.9); Monocytes % 4.4 %; Neutrophils # 13.94 10^3/uL (1.8-7.7); Neutrophils % 89.2 %; Nucleated Red Blood Cells % 0 %; Platelet Count 314 10^3/cmm (130-400); Red Blood Count 4.92 10^6/uL (4.1-5.3); Red Cell Distribution Width 13.5 % (12.1-15.1); White Blood Count 15.6 10^3/uL (4.0-10.0)
[2022-03-09 13:37] LABS: Albumin Level 3.8 g/dL (3.5-5.2); Alkaline Phosphatase 180 U/L (35-105); Aspartate Amino Transferase 307 U/L (0-32); Blood Urea Nitrogen 10 mg/dL (6-20); Calcium 9.3 mg/dL (8.5-10.5); Carbon Dioxide 23 mmol/L (22-29); Chloride 104 mmol/L (98-107); Globulin 3.3 g/dL (1.3-4.6); Glomerular Filtration Rate 98.3 mL/min (90-130); Glucose 115 mg/dL (65-115); Lipase 23 U/L (13-60); Osmolality Calculated 282 mOsm/kg (285-295); Sodium 136 mmol/L (136-145); Total Bilirubin 3.6 mg/dL (0.15-1.2); Total Protein 7.1 g/dL (6.6-8.7)
[2022-03-09 13:43] LABS: Anion Gap 13.4 (5-19); Potassium 4.4 mmol/L (3.5-5.1)
[2022-03-09 13:48] LABS: Alanine Aminotransferase 967 U/L (0-33)
[2022-03-09 13:56] LABS: Add Urine Microscopic? NO; Charge for UA Resulting for Rev
[2022-03-09 14:01] LABS: Bilirubin Urine 1+ (Negative); Blood Urine Neg (Negative); Glucose Urine UA Norm (Normal); Ketones Urine Negative (Negative); Leukocyte Esterase Urine Negative (Negative); Nitrate Urine Negative (Negative); Protein Urine Neg (Negative); Urine Appearance Clear (CLEAR); Urine Color Dark Yellow (Yellow); Urobilinogen Urine Norm (Negative); pH Urine 6 (5-7)
[2022-03-09 15:07] VITALS: BP 119/99; PULSE 105; RESP 14; O2SAT 92
[2022-03-09] MEDS: piperacillin-tazobactam 3.375 GM in sodium chloride 0.9% (plus) 50 ML IV (15:13)
[2022-03-09] MEDS: lactated ringers 1,000 ML 125 ML IV (15:15)
[2022-03-09 16:42] VITALS: RESP 16; O2SAT 94
== END 2022-03-09 18:39 | disposition short-term general hospital (02) ==
PROVIDERS: Physician Assistant; Emergency Provider Emergency Medicine; PCP Obstetrics & Gynecology
DX: K80.50 Calculus of bile duct without cholangitis or cholecystitis without obstruction (principal)
CPT/HCPCS: 76705; 80053; 81003; 83690; 84703; 85025; 96365; 96375; 96376; 99285; J2270; J2405; J2543; J7120

== ENCOUNTER → 2023-01-07 11:40 | Outpatient (BNVA) | payer MEDICAID, SELFPAY | PROVIDERS: PCP Obstetrics & Gynecology; Visit Provider Nurse Practitioner Women's Health | DX: Z34.90 Encounter for supervision of normal pregnancy, unspecified, unspecified trimester (principal); R30.0 Dysuria | CPT/HCPCS: 84315; 87077; 87086; 87184 ==

== ENCOUNTER → 2023-01-22 10:04 | Outpatient (BNVA) | payer MEDICAID, SELFPAY | PROVIDERS: PCP Obstetrics & Gynecology; Visit Provider Obstetrics & Gynecology | DX: Z34.90 Encounter for supervision of normal pregnancy, unspecified, unspecified trimester (principal) | CPT/HCPCS: 84315; 87081 ==

== ENCOUNTER 2023-02-08 04:52 | Inpatient (IN) | payer MEDICAID, SELFPAY ==
[2023-02-08] VITALS (43 sets, daily range): BP systolic 106–142; BP diastolic 56–79; PULSE 65–98; RESP 16–18; TEMP 35.4–36.9; O2SAT 94–99; BMI 44.6
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
[2023-02-08] MEDS: lactated ringers 1,000 ML 999 ML IV ×2 (05:55→07:42)
[2023-02-08 06:13] LABS: Basophils % 0.1 %; Hematocrit 36.6 % (36-47); Lymphocytes # 2.1 10^3/uL (0.8-4.8); Lymphocytes % 14.2 %; Mean Corpuscular HGB Conc 34.2 g/dL (30-55); Mean Corpuscular Hemoglobin 29.1 pg (27-33); Mean Corpuscular Volume 85.3 fl (85-98); Mean Platelet Volume 11.3 fL (7.4-10.4); Monocytes # 0.9 10^3/uL (0.2-0.9); Monocytes % 6.1 %; Neutrophils # 11.39 10^3/uL (1.8-7.7); Neutrophils % 78.3 %; Nucleated Red Blood Cells % 0 %; Platelet Count 298 10^3/cmm (157-399); Red Blood Count 4.29 10^6/uL (3.85-5.65); Red Cell Distribution Width 13.1 % (12.1-15.1); White Blood Count 14.54 10^3/uL (3.29-11.43)
--- NOTE | 2023-02-08 06:30 | P.HP_ITS ---
Providers/Chief Complaint Admitting Physician: Victor M Solares MD Primary LINT CLEANER: Victor M Solares MD Primary Care Provider: Lyn Antonio DO Chief Complaint: C Section HPI LINT CLEANER History of Present Illness Martine Cheung is a 32 year old female , EDC February 14, 2023 no complications h/o previous x one does not want trial of labor now scheduled for repeat Present Details : 2 Para: 1 Labs Rubella: Non-Immune RPR: Negative GBS: Positive Medications/Allergies Home Medications Medication Instructions Recorded Confirmed Last Taken Type albuterol sulfate 90 mcg/actuation 2 inh inhalation Q6H PRN ASTHMA 09/29/21 02/05/23 10/24/21 08:00 History breath activated powder inhaler montelukast 10 mg tablet 10 mg PO BEDTIME 09/29/21 02/05/23 03/08/22 History budesonide-formoterol HFA 160 2 puff inhalation BID 03/09/22 02/05/23 03/09/22 History mcg-4.5 mcg/actuation aerosol inhaler (Symbicort) hydrocortisone 2.5 % topical cream 1 applic topical . DIRECTED PRN 03/09/22 02/05/23 Unknown History eczema methocarbamol 750 mg tablet 750 mg PO Q8H PRN Muscle Pain 03/09/22 02/05/23 03/08/22 History benralizumab 30 mg/mL subcutaneous mg SUBCUT .8 weeks 01/07/23 02/05/23 Unknown History syringe (Fasenra) vits no.126-ferrous fum tab PO DAILY 01/07/23 02/05/23 Unknown History 28 mg iron-folic acid 800 mcg tablet (Classic ) Allergies Allergy/AdvReac Type Severity Reaction Status Date / Time No Known Allergies Allergy Verified 02/05/23 11:12 PFSH LINT CLEANER PFSH: Medical History No pertinent past medical history neghx: htn, dm, thyroid, dvt/pe PCP: Dr. Antonio Supervision of normal Surgical History History of hip surgery History of surgery on lower extremity Family History Grandfather Diabetes maternal Hypertension Heart disease Denies family history of Cervical cancer Colon cancer Ovarian cancer Prostate cancer Hyperlipidemia Breast cancer Bleeding disorder Uterine cancer Thyroid disease Stroke History History History 1 Term 1 0 Miscarriages/Ectopic 0 Living Children 1 Care SATYA Calculator Estimated Delivery Date Method Current WG Current Estimate 02/14/23 LMP (Certain) 39w 1d Expected Delivery Route/Plan Vitals/I&O/Wt Last Vital Signs Temp 97.2 F L 02/08/23 06:25 Pulse 82 02/08/23 10:05 BP 127/61 02/08/23 10:05 O2 Del Method Room Air 02/08/23 05:00 Weight last 48 hrs Weight 268 lb Physical Exam Const: COMMON NORMALS: no acute distress, average body habitus, patient oriented x3, no limitations, healthy appearing, alert and well nourished Resp: COMMON NORMALS: normal respiratory effort, No retractions, No use of accessory muscles, clear to auscultation bilaterally and percussion normal Cardio: COMMON NORMALS: regular rate and regular rhythm GI: COMMON NORMALS: Soft to palpation and non-tender Urinary Catheter Management: Hinton: Cath Placed During This Visit: yes Urinary Catheter Date of Insertion: 02/08/23 Urinary Catheter Time of Insertion: 07:30 Data 02/08/23 05:55 Results Labs OB ([facility]): Obstetrics US 10/16/21 Blood Type A Positive 02/08/23 Antibody Screen Negative 02/08/23 Hct 36.6 % (36-47) 02/08/23 Hgb 12.50 g/dL (11.27-16.99) 02/08/23 Rho(D) Type Positive 02/08/23 Plt Count 298 10^3/cmm (157-399) 02/08/23 HCG, Qual Negative (Negative) 03/09/22 Urine Opiates Screen Negative ng/mL (Negative) 10/24/21 Ur Barbiturates Screen Negative ng/mL (Negative) 10/24/21 Ur Phencyclidine Scrn Negative ng/mL (Negative) 10/24/21 Ur Amphetamines Screen Negative ng/mL (Negative) 10/24/21 U Benzodiazepines Scrn Negative ng/mL (Negative) 10/24/21 Urine Cocaine Screen Negative ng/mL (Negative) 10/24/21 U Marijuana (THC) Screen Negative ng/mL (Negative) 10/24/21 Micro Urine Specimen 01/07/23 A&P Assessment and plan (1) : 39 + weeks of gestation (2) History of : h/o x one plan repeat c-s procedure and risks explained to patient, including risks of infection, bleeding, injury to internal organs, anesthesia, blood transfusions patient understands and wants to proceed (3) Morbid obesity: Attestations Medical Necessity Statement*: patient at 39+ weeks with previous c-s x one, admitted for repeat c-s Coding Level of Care Code Acute Code for Chg Fwd Diagnoses Z34.90 History of Z98.891 Morbid obesity E66.01 Time Spent (min) 20
[2023-02-08] MEDS: citric acid-sodium citrate 30 mL UDC PO (06:50)
[2023-02-08] MEDS: ceFAZolin 2,000 MG in sodium chloride 0.9% (plus) 50 ML 100 MG IV (06:51)
[2023-02-08] MEDS: famotidine 20 mg/2 mL INJ IVP (06:51)
[2023-02-08] MEDS: metoclopramide 5 mg/mL SDV 2 mL 10 MG IVP (06:51)
--- NOTE | 2023-02-08 08:40 | P.OP_ITS ---
Operative Report Date of procedure: February 08, 2023 Pre-op diagnosis: 39 ? weeks gestation Previous x one For repeat Post-op diagnosis: same Post-op findings: Same Procedure done: Repeat low-transverse Implants: none Specimens removed/disposition: placenta, discarded Surgeon: Victor M Solares MD Anesthesia: Spinal Estimated blood loss (mL): 500 Complications: none Condition: stable Disposition: floor Brief History: Patient with previous , scheduled for repeat . Procedure: Informed consent signed. Patient was taken to the operating room, placed supine in the left lateral tilt position. Spinal anesthesia and a Hinton catheter were already placed. The abdomen was prepped and draped in the usual sterile fashion. A Pfannenstiel incision was made over an old scar and carried down through skin and subcutaneous tissue and fascia. The fascial incision was extended laterally with Melara scissors. The fascia was from the underlying rectus muscles. The rectus muscles were split in the midline. The peritoneum was entered bluntly avoiding underlying organs. A bladder flap was created. A low transverse uterine incision was made and extended laterally bluntly avoiding the uterine vessels. Clear amniotic fluid was seen. The baby was delivered in cephalic presentation atraumatically. The baby was suctioned. The cord was clamped and cut and the baby was handed to an awaiting early childhood special educator. Cord blood was obtained. The placenta was manually removed intact. The uterus was exteriorized. The uterine cavity was bluntly curetted with wet laps. The uterine incision was then closed with a continuous interlocking stitch of O chromic. Adequate hemostasis was seen. No bleeding was seen. The uterine incision was again inspected and found to have good hemostasis. The uterus was returned into the abdominal cavity. The fascia was then closed with a continuous stitch of O-Vicryl. Additional interrupted stitches of O-Vicryl were used for fascial closure. The subcutaneous tissue was irrigated and inspected for hemostasis. The skin was then reapproximated using Insorb nhung. Postoperative condition stable Disposition to recovery room Estimated blood loss 500 cc, no replacement Sponge, needle, and instrument counts were correct x two There were no complications
--- NOTE | 2023-02-08 08:46 | PC.NURSE ---
0800 PATIENT STILL IN OR
[2023-02-08] MEDS: ketorolac 30 mg/mL INJ IVP ×3 (11:09→23:40)
[2023-02-08] MEDS: diphenhydrAMINE 50 mg/mL SDV 1mL 25 MG IVP (11:09)
[2023-02-08] MEDS: HYDROcodone-acetaminophen 5-325 mg Tablet PO ×2 (14:30→18:32)
[2023-02-08] MEDS: docusate sodium 100 mg Capsule PO (18:30)
[2023-02-08 21:12] LABS: Hematocrit 34.4 % (36-47); Mean Corpuscular HGB Conc 33.4 g/dL (30-55); Mean Corpuscular Hemoglobin 29.3 pg (27-33); Mean Corpuscular Volume 87.8 fl (85-98); Mean Platelet Volume 11.3 fL (7.4-10.4); Platelet Count 266 10^3/cmm (157-399); Red Blood Count 3.92 10^6/uL (3.85-5.65); White Blood Count 13.53 10^3/uL (3.29-11.43)
[2023-02-09] MEDS: HYDROcodone-acetaminophen 5-325 mg Tablet PO ×5 (00:10→21:37)
[2023-02-09 03:23] VITALS: TEMP 35.7
[2023-02-09 03:24] VITALS: BP 108/55; PULSE 79
[2023-02-09] MEDS: ketorolac 30 mg/mL INJ IVP (05:15)
[2023-02-09] MEDS: ibuprofen 800 mg tablet PO ×3 (09:03→20:24)
[2023-02-09] MEDS: prenatal vitamin Capsule 1 CAP PO (09:04)
[2023-02-09] MEDS: docusate sodium 100 mg Capsule PO ×2 (09:04→16:16)
[2023-02-09 09:07] VITALS: BP 126/74; PULSE 75
[2023-02-09 16:18] VITALS: BP 119/68; PULSE 77; TEMP 36.9
--- NOTE | 2023-02-09 17:57 | PM.OBGYPN ---
CLINICAL PSYCHOLOGIST [facility] Subjective Subjective: Interval history: c/o mild incisional pain no bleeding, nausea, vomiting tolerating PO well caring for infant without any difficulties Labor: Monitor Mode: External Contraction Pattern: Rare Vitals/I&O/Wt Last Vital Signs Temp 98.4 F 02/09/23 16:18 Pulse 77 02/09/23 16:18 Resp 18 02/08/23 09:00 BP 119/68 02/09/23 16:18 Pulse Ox 94 02/08/23 16:38 O2 Del Method Room Air 02/08/23 16:38 02/09/23 02/09/23 02/09/23 06:59 14:59 22:59 Output Total 1200 / 2100 400 / 400 Balance -1200 / -1100 -400 / -400 Weight last 48 hrs Weight 268 lb Physical Exam Narrative: afebrile, VS normal comfortable, awake, alert Lungs:? clear Cor:? RRR Abd:? soft, nondistended, nontender fundus firm wound clean and dry Ext:? normal Urinary Catheter Management: Hinton: Cath Placed During This Visit: yes, but has since been removed by the nurse Reason for Continuing Indwelling Catheter: Decision to DC Catheter Urinary Catheter Date of Insertion: 02/08/23 Urinary Catheter Time of Insertion: 07:30 Date Urinary Catheter Removed: 02/09/23 Time Urinary Catheter Discontinued: 05:50 Data 02/08/23 20:53 A&P Assessment and plan (1) S/P repeat low transverse : POD #1 repeat low-transverse ? doing well ? continue postop care ? ambulate Attestations Medical Necessity Statement*: patient is POD #1 s/p repeat Coding Level of Care Code Acute Code for Chg Fwd Diagnoses S/P repeat low transverse Z98.891 Time Spent (min) 20
[2023-02-09 21:35] VITALS: BP 141/87; PULSE 69
[2023-02-09 21:38] VITALS: TEMP 35.8
[2023-02-10] MEDS: HYDROcodone-acetaminophen 5-325 mg Tablet PO ×3 (01:40→10:25)
[2023-02-10 06:10] VITALS: BP 136/63; PULSE 73
[2023-02-10] MEDS: prenatal vitamin Capsule 1 CAP PO (09:14)
[2023-02-10] MEDS: ibuprofen 800 mg tablet PO (09:15)
[2023-02-10] MEDS: docusate sodium 100 mg Capsule PO (09:15)
[2023-02-10 10:01] VITALS: BP 130/83; PULSE 76; RESP 16; TEMP 36.5
[2023-02-10] MEDS: measles,mumps,rubella pf Vial (w/diluent) 0.5 ML SUBCUT (12:15)
[2023-02-10] MEDS: flu vacc pf 2023-24 (6 mos+) 60 MCG IM (12:19)
[2023-02-10] MEDS: pneumococcal (23 valent) SDV 0.5 mL IM (12:31)
[2023-02-10 13:08] VITALS: BP 129/78; PULSE 74; RESP 16; TEMP 36.6
--- NOTE | 2023-02-10 15:10 | P.PN_ITS ---
BUSINESS LEADER Subjective Subjective: Interval history: no c/o eating, voiding, ambulating well no pain, bleeding wants to go home without any difficulties Labor: Monitor Mode: External Contraction Pattern: Rare Vitals/I&O/Wt Last Vital Signs Temp 97.9 F 02/10/23 13:08 Pulse 74 02/10/23 13:08 Resp 16 02/10/23 13:08 BP 129/78 02/10/23 13:08 Pulse Ox 94 02/08/23 16:38 O2 Del Method Room Air 02/08/23 16:38 Physical Exam Narrative: comfortable afebrile, VS normal Abd: soft, nontender wound clean and dry Ext: normal Urinary Catheter Management: Hinton: Cath Placed During This Visit: yes, but has since been removed by the nurse Reason for Continuing Indwelling Catheter: Decision to DC Catheter Urinary Catheter Date of Insertion: 02/08/23 Urinary Catheter Time of Insertion: 07:30 Date Urinary Catheter Removed: 02/09/23 Time Urinary Catheter Discontinued: 05:50 Data 02/08/23 20:53 A&P Assessment and plan (1) S/P repeat low transverse : POD #2 repeat low-transverse doing well discharge home today instructions and precautions given call/return if fever, chills, nausea, vomiting, headaches, abdominal pain, bleeding, inability to void, swelling, leg pain; feelings of depression or mood changes; wound redness, swelling, or discharge f/u in 1 week or PRN Attestations Medical Necessity Statement*: patient s/p repeat , plan discharge home today Coding Level of Care Code Acute Code for Chg Fwd Diagnoses S/P repeat low transverse Z98.891 Time Spent (min) 20
--- NOTE | 2023-02-10 15:12 | P.DS_ITS ---
Discharge Providers PATTERN SHOP SUPERVISOR Date of Admission: 02/08/23 04:52 Date of Discharge: 02/10/23 Attending Provider at Admission: Victor M Solares MD Attending Provider at Discharge: Victor M Solares MD Consults: none Primary PATTERN SHOP SUPERVISOR: Victor M Solares MD Primary Care Provider: Lyn Antonio DO Diagnoses at Discharge Discharge Diagnosis (1) S/P repeat low transverse : Details from hospital stay: patient underwent repeat low-transverse February 08, 2023 without any complications patient did well post-op Status: Acute Reason for Visit Reason for Visit: C Section Brief History: 32 y.o. at term h/o previous patient desired repeat Hospital Course Hospital Course patient underwent repeat low-transverse February 08, 2023 without any complications patient did well post-op Information Peripartum Data: Infant Delivery Method: Physical Exam Const: COMMON NORMALS: no acute distress, average body habitus, patient oriented x3, no limitations, healthy appearing, alert and well nourished Resp: COMMON NORMALS: normal respiratory effort and clear to auscultation bilaterally AUSCULTATION: clear to auscultation bilaterally Cardio: COMMON NORMALS: regular rate and regular rhythm RATE: regular rate RHYTHM: regular rhythm GI: COMMON NORMALS: Normal to inspection, nondistended, normoactive bowel sounds present, Soft to palpation and non-tender PALPATION: Yes Soft to palpation OTHER: wound clean and dry Extremity: COMMON NORMALS: normal to inspection and no calf tenderness Neuro: COMMON NORMALS: patient oriented x3 SENSORIUM/ORIENTATION: Yes alert Urinary Catheter Management: Hinton: Cath Placed During This Visit: yes, but has since been removed by the nurse Reason for Continuing Indwelling Catheter: Decision to DC Catheter Urinary Catheter Date of Insertion: 02/08/23 Urinary Catheter Time of Insertion: 07:30 Date Urinary Catheter Removed: 02/09/23 Time Urinary Catheter Discontinued: 05:50 History History History 1 Term 1 0 Miscarriages/Ectopic 0 Living Children 1 Discharge Data Studies Completed and Pending Laboratory Results WBC 13.53 10^3/uL (3.29-11.43) H 02/08/23 20:53 RBC 3.92 10^6/uL (3.85-5.65) 02/08/23 20:53 Hgb 11.50 g/dL (11.27-16.99) 02/08/23 20:53 Hct 34.4 % (36-47) L 02/08/23 20:53 MCV 87.8 fl (85-98) 02/08/23 20:53 MCH 29.3 pg (27-33) 02/08/23 20:53 MCHC 33.4 g/dL (30-55) 02/08/23 20:53 RDW 13.0 % (12.1-15.1) 02/08/23 20:53 Plt Count 266 10^3/cmm (157-399) 02/08/23 20:53 MPV 11.3 fL (7.4-10.4) H 02/08/23 20:53 Neut % (Auto) 78.3 % 02/08/23 05:55 Lymph % (Auto) 14.2 % 02/08/23 05:55 [place] % (Auto) 6.1 % 02/08/23 05:55 Eos % (Auto) 0.0 % 02/08/23 05:55 Baso % (Auto) 0.1 % 02/08/23 05:55 Neut # (Auto) 11.39 10^3/uL (1.8-7.7) H 02/08/23 05:55 Lymph # (Auto) 2.1 10^3/uL (0.8-4.8) 02/08/23 05:55 [place] # (Auto) 0.9 10^3/uL (0.2-0.9) 02/08/23 05:55 Eos # (Auto) 0.0 10^3/uL (0.0-0.8) 02/08/23 05:55 Baso # (Auto) 0.0 10^3/uL (0.0-0.1) 02/08/23 05:55 Nucleated RBC % (auto) 0 % 02/08/23 05:55 Nucleated RBCs # 0.0 /100WBC 02/08/23 05:55 Blood Type A Positive 02/08/23 05:55 Rho(D) Type Positive 02/08/23 05:55 Antibody Screen Negative 02/08/23 05:55 Procedures Performed repeat low-transverse Vitals Last Vital Signs Temp 97.9 F 02/10/23 13:08 Pulse 74 02/10/23 13:08 Resp 16 02/10/23 13:08 BP 129/78 02/10/23 13:08 Pulse Ox 94 02/08/23 16:38 O2 Del Method Room Air 02/08/23 16:38 Results Labs OB ([facility]): Obstetrics US 10/16/21 Blood Type A Positive 02/08/23 Antibody Screen Negative 02/08/23 Hct 34.4 % (36-47) L 02/08/23 Hgb 11.50 g/dL (11.27-16.99) 02/08/23 Rho(D) Type Positive 02/08/23 Plt Count 266 10^3/cmm (157-399) 02/08/23 HCG, Qual Negative (Negative) 03/09/22 Urine Opiates Screen Negative ng/mL (Negative) 10/24/21 Ur Barbiturates Screen Negative ng/mL (Negative) 10/24/21 Ur Phencyclidine Scrn Negative ng/mL (Negative) 10/24/21 Ur Amphetamines Screen Negative ng/mL (Negative) 10/24/21 U Benzodiazepines Scrn Negative ng/mL (Negative) 10/24/21 Urine Cocaine Screen Negative ng/mL (Negative) 10/24/21 U Marijuana (THC) Screen Negative ng/mL (Negative) 10/24/21 Micro Urine Specimen 01/07/23 Discharge Plan Discharge Patient Disposition: Home Condition: Stable Prescriptions: New Percocet 5-325 mg tablet 1 tab PO Q8H PRN (Reason: pain) Qty: 20 0RF Continued albuterol sulfate 90 mcg/actuation aerosol powdr breath activated 2 inh inhalation Q6H PRN (Reason: ASTHMA) montelukast 10 mg tablet 10 mg PO BEDTIME Classic 28 mg iron- 800 mcg tablet PO DAILY Fasenra 30 mg/mL syringe SUBCUT .8 weeks Rx Instructions: once every 8 weeks methocarbamol 750 mg Tablet 750 mg PO Q8H PRN (Reason: Muscle Pain) hydrocortisone 2.5 % cream 1 applic TOPICAL . DIRECTED PRN (Reason: eczema) Symbicort 160-4.5 mcg/actuation HFA aerosol inhaler 2 puff INHALATION BID Discharge Orders: Discharge Order (Routine); Ordered 02/10/23 Ordered By: Victor M Solares Referrals: Victor M Solares MD [Physician] - (Please call [facility] on the next business day to schedule your appointments ) Discharge Diet: Usual diet Discharge Activity: Increase activity as tolerated Patient Instructions: Depression (DC), Bleeding (DC), Preeclampsia and Eclampsia After Delivery (GEN), Hemorrhage (GEN), OB C, OB Discharge Report, OB Food/Drug Interaction Guide, OB Care at Home, Opioid Safety, OB Home Care Discharge Attestations PATTERN SHOP SUPERVISOR Time Spent in Discharge Care*: less than 30 min Coding Level of Care Code Acute Code for Chg Fwd Diagnoses S/P repeat low transverse Z98.891 Time Spent (min) 20
== END 2023-02-10 13:25 | disposition home or self-care (01) | DRG 788 ==
PROVIDERS: Admitting Provider Obstetrics & Gynecology; PCP Obstetrics & Gynecology; Visit Provider Obstetrics & Gynecology
PROC: 10D00Z1 Extraction of Products of Conception, Low, Open Approach (ICD-10-PCS; CPT 59514; principal; 2023-02-08 07:00)
PROC: 10D00Z1 Extraction of Products of Conception, Low, Open Approach (ICD-10-PCS; CPT 59514; 2023-02-08 07:00)
DX: O34.211 Maternal care for low transverse scar from previous cesarean delivery (principal); N85.8 Other specified noninflammatory disorders of uterus; Z3A.39 39 weeks gestation of pregnancy; Z37.0 Single live birth; O99.824 Streptococcus B carrier state complicating childbirth
CPT/HCPCS: 36415; 51702; 59025; 59409; 84315; 85025; 85027; 86850; 86900; 90471; 90686; 90707; 90732; 96372; 96374; 96376; 98960; 99211; J0690; J1200; J1885; J2274; J2765; J3010; J3490; J7120